=== PATIENT | female | born 1995 | race African-American/Black ===

== ENCOUNTER 2017-07-31 09:37 | Day surgery (SDC) | payer OTHER ==
[~2017-07-31] VITALS: Ht 154.9 cm; Wt 91.6 kg
[~2017-07-31 09:37] MED LIST: BIRTH CONTROL PILLS; NON-ASPIRIN PA500 M1 PO
[2017-07-31 10:05] VITALS: BP 120/79
[2017-07-31 10:11] LABS: HEMATOCRIT 40.9 % (36.0-46.0); MCH 30.5 PG (29.0-34.0); MCV 89.9 FL (83-99); MEAN PLAT.VOLUME 8.8 uM^3 (9.5-12.4); PLATELET COUNT 324 K/uL (156-360); RBC DIS.WIDTH-CV 12.6 % (11.8-14.6); RBC DIS.WIDTH-SD 41.7 % (39-53); RED BLOOD COUNT 4.55 M/uL (3.80-5.20); WHITE BLOOD COUNT 5.2 K/uL (4.1-10.2)
[2017-07-31 10:45] LABS: ANION GAP 10 MEQ/L (2-14); CHLORIDE 108 MEQ/L (99-109); GFR ESTIMATE (CALCULATED) > 59 mL/min/; GLUCOSE 95 mg/dL (70-99); POTASSIUM 4.5 MEQ/L (3.7-5.4); SAMPLE HEMOLYSIS CHECK 0; SAMPLE ICTERIC CHECK 0; SAMPLE LIPEMIA CHECK 0; SODIUM 139 MEQ/L (136-147); UREA NITROGEN (BUN) 11 mg/dL (9-23)
[2017-07-31 18:13] VITALS: BP 144/88
[2017-07-31 19:50] VITALS: BP 132/92
[2017-08-01 00:05] VITALS: BP 138/82
[2017-08-01 04:33] VITALS: BP 119/68
[2017-08-01 07:55] VITALS: BP 128/63
[2017-08-01 11:17] VITALS: BP 129/78
[2017-08-05 12:25] LABS: INTERNAL CONTROL VALID? YES
== END 2017-08-01 14:18 | disposition home or self-care (01) ==
LOC: SDC 09:37 → 2SOUTH 16:31 → ENRESERV 16:32 → 2EAST 18:10
PROVIDERS: Surgery Plastic and Reconstructive Surgery
PROC: 0HBV0ZZ Excision of Bilateral Breast, Open Approach (ICD-10-PCS; principal; 2017-07-31)
DX: N62 Hypertrophy of breast (principal)
CPT/HCPCS: 80048; 84703; 85027; 88305; G0378; J0330; J0690; J1100; J1170; J1885; J2250; J2405; J2765; J3010; J7050